=== PATIENT | female | born 1985 | race Caucasian/White ===

== ENCOUNTER 2018-12-02 16:21 | Emergency (ER) | payer OTHER ==
[2018-12-02 16:29] VITALS: BP 133/81
[2018-12-02] MEDS ORDERED: KETOROLAC TROMETHAMINE 60 MG/2 ML SDV IM ONE (16:57)
--- NOTE | 2018-12-02 16:57 | ER Document Report ---
ED Medical Screen (RME) - General Chief Complaint: Shoulder Pain Stated Complaint: LEFT SHOULDER INJURY Time Seen by Provider: 12/02/18 16:53 Mode of Arrival: Ambulatory Information source: Patient Notes: 33-year-old female presents to ED after she fell off a stepladder around 10:00 this morning. She states she landed on her left shoulder. She states she is having pain in the left shoulder. She states there is pain with any range of motion to the left shoulder. Last menstrual cycle November 25, 2018 medical history reflux, slipped disc, and pelvic fracture. Patient is alert and orien rai respirations regular and unlabored speaking in full sentences. I have greeted and performed a rapid initial assessment of this patient. A comprehensive ED assessment and evaluation of the patient, analysis of test results and completion of medical decision making process will be conducted by an additional ED providers. TRAVEL OUTSIDE OF THE [place] IN LAST 30 DAYS: No - Related Data Allergies/Adverse Reactions: No Known Allergies Allergy (Verified 12/02/18 16:45) Home Medications: omeprazole. wellbutrin Past Medical History - Social History Chew tobacco use (# tins/day): No Frequency of alcohol use: Social Drug Abuse: None Pulmonary Medical History: Reports: Hx Asthma Physical Exam - Vital signs Vitals: Temp Pulse Resp BP Pulse Ox 98.1 F 94 18 133/81 H 99 12/02/18 16:28 12/02/18 16:28 12/02/18 16:28 12/02/18 16:28 12/02/18 16:28 Course - Vital Signs Vital signs: Temp Pulse Resp BP Pulse Ox 98.1 F 94 18 133/81 H 99 12/02/18 16:28 12/02/18 16:28 12/02/18 16:28 12/02/18 16:28 12/02/18 16:28
--- NOTE | 2018-12-02 17:19 | RADIOLOGY REPORT (SQ) ---
EXAM DESCRIPTION: SHOULDER LEFT 2 OR MORE VIEWS COMPLETED DATE/TIME: 12/02/2018 5:10 pm REASON FOR STUDY: Fall pain injury left shoulder COMPARISON: None. NUMBER OF VIEWS: Three views. TECHNIQUE: Internal rotation, external rotation, and Y view images acquired of the left shoulder. LIMITATIONS: None. FINDINGS: MINERALIZATION: Normal. BONES: No acute fracture. No worrisome bone lesions. JOINTS: No dislocation. VISUALIZED LUNGS AND RIBS: No pneumothorax. No rib fracture. SOFT TISSUES: No radiopaque foreign body. OTHER: No other significant finding. IMPRESSION: NEGATIVE STUDY OF THE LEFT SHOULDER. NO RADIOGRAPHIC EVIDENCE OF ACUTE INJURY. TECHNICAL DOCUMENTATION: JOB ID: [id number] [employer]- All Rights Reserved Reading location - IP/workstation name: [email or web address]
--- NOTE | 2018-12-02 17:46 | ER Document Report ---
HPI - HPI Patient complains to provider of: Left shoulder pain Time Seen by Provider: 12/02/18 16:53 Onset: Just prior to arrival Onset/Duration: Sudden Quality of pain: Achy Severity: Severe Pain Level: 4 Context: Patient presents emergency department with complaints of left shoulder pain. Patient reports she was on a small stepladder when she fell off and landed on her shoulder. No change in LOC. Reports pain since that time. No other symptoms such as fever vomiting diarrhea. Associated Symptoms: None Exacerbated by: Movement Relieved by: Denies Similar symptoms previously: No Recently seen / treated by doctor: No - REPRODUCTIVE Reproductive: DENIES: : Past Medical History - General Information source: Patient - Social History Smoking Status: Current Every Day Smoker Chew tobacco use (# tins/day): No Frequency of alcohol use: Social Drug Abuse: None Occupation: [employer] Family History: Reviewed & Not Pertinent Patient has suicidal ideation: No Patient has homicidal ideation: No Pulmonary Medical History: Reports: Hx Asthma Traumatic Medical History: Reports: Other - Herniated disc Surgical Hx: Negative Vertical Provider Document - CONSTITUTIONAL Agree With Documented VS: Yes Exam Limitations: No Limitations General Appearance: WD/WN, No Apparent Distress - Winces when shoulder is palpated - INFECTION CONTROL TRAVEL OUTSIDE OF THE [place] IN LAST 30 DAYS: No - HEENT HEENT: Atraumatic, Normocephalic - NECK Neck: Normal Inspection, Supple. negative: Lymphadenopathy-Left, Lymphadenopathy-Right - RESPIRATORY Respiratory: No Respiratory Distress - CARDIOVASCULAR Cardiovascular: Regular Rate - MUSCULOSKELETAL/EXTREMETIES Musculoskeletal/Extremeties: Tender - Left shoulder tender to palpate anteriorly no obvious deformity no erythema no swelling no warmth. Patient able to abduct abduct left arm. Complains of pain when raising arm above her shoulder. Cap refill less than 3 seconds good radial pulse - NEURO Level of Consciousness: Awake, Alert - DERM Integumentary: Warm, Dry Adult Front & Back Diagram: 1 - Patient reports tender to palpate Course - Re-evaluation Re-evalutation: 12/02/18 17:50 This 33-year-old female presents to the emergency department with left shoulder pain. She is right-handed. She reports she fell off a stepstool landed on her shoulder. Shoulder x-rays negative for fracture concern regarding possible tear to rotator cuff. Patient was instructed on sling for comfort ibuprofen as indicated for pain. She was also instructed to follow-up with orthopedics for further evaluation and possible MRI of the shoulder. She verbalized understanding to all instructions. Dictation of this chart was performed using voice recognition software; ther efore, there may be some unintended grammatical errors. Shoulder X-Ray 12/02/18 16:58 IMPRESSION: NEGATIVE STUDY OF THE LEFT SHOULDER. NO RADIOGRAPHIC EVIDENCE OF ACUTE INJURY. - Vital Signs Vital signs: Temp Pulse Resp BP Pulse Ox 98.1 F 94 18 133/81 H 99 12/02/18 16:28 12/02/18 16:28 12/02/18 16:28 12/02/18 16:28 12/02/18 16:28 - Diagnostic Test Radiology reviewed: Image reviewed, Reports reviewed Procedures - Immobilization Left Shoulder Immobilizer type: Sling Performed by: RN Post-Proc Neuro Vasc Exam: Unchanged from pre-exam Alignment checked and good: Yes Discharge - Discharge Clinical Impression: Injury of left shoulder Qualifiers: Encounter type: initial encounter Qualified Code(s): S49.92XA - Unspecified injury of left shoulder and upper arm, initial encounter Condition: Stable Disposition: HOME, SELF-CARE Instructions: Use of [id number] Ibuprofen ([facility]), Temporary Sling ([facility]) Additional Instructions: *You have been evaluated for left shoulder pain *Maintain the sling for comfort *Rest/Ice/Elevate your shoulder *[facility] your primary care provider tomorrow for referral to orthopedics *Take ibuprofen as indicated for pain *Return to ED for worsening condition, changes, needs Forms: Elevated Blood Pressure Referrals: FLORENCIA CONKLIN MD [Primary Care Provider] - Follow up as needed
== END 2018-12-02 18:00 | disposition home or self-care (01) ==
LOC: ER 16:21
DX: S49.92XA Unspecified injury of left shoulder and upper arm, initial encounter (principal); W17.89XA Other fall from one level to another, initial encounter; F17.200 Nicotine dependence, unspecified, uncomplicated
CPT/HCPCS: 99283; 96372; 73030; J1885